=== PATIENT | female | born 1980 | race Caucasian/White ===

== ENCOUNTER 2019-05-13 11:25 | Emergency (ER) | payer MEDICAID, SELFPAY ==
--- NOTE | ~2019-05-13 | CT_ITS ---
EXAMINATION: CT brain wo con, CT cervical spine wo con EXAM DATE: 05/13/2019 12:28 (accession [id number]), 05/13/2019 12:27 (accession [id number]) INDICATION: Fall, head injury. Possible seizure. TECHNIQUE: Spiral CT of the head was performed without contrast. Axial, coronal and sagittal images were reviewed. Spiral CT of the cervical spine was performed without contrast. Axial images were rev iewed. Coronal and sagittal reformatted images were also reviewed. The dose-length product (DLP) fo r this examination was 605.33 (accession [id number]), 520.49 (accession [id number]) mGy-cm. The exposure was tailored according to patient size, and iterative reconstruction (ASIR) was used as additional dose reduction technique. There is no prior study for comparison. FINDINGS: HEAD CT: There is no acute intraparenchymal hemorrhage. No evidence of intraparenchymal brain mass l esion. No evidence of acute infarction. There is no mass effect or midline shift. There is no obstru ctive hydrocephalus suspected. There are no extra-axial collections. There are no acute calvarial f ractures. The orbits are unremarkable. Soft tissue is unremarkable. The visualized sinuses and mas toid air cells are well aerated. CERVICAL CT: There is no evidence of acute cervical fracture. The odontoid process is intact. Pre-d ens space is normal. Prevertebral soft tissue is normal. There are no soft tissue abnormalities tyler ntified. There is no disc space widening or traumatic vertebral body subluxation suspected. Mild to moderate cervical spondylosis and C5-6 disc disease. A detailed level by level evaluation of eladia kyle can be added as addendum if requested. IMPRESSION: 1. No acute intracranial or cervical findings. Reviewed, dictated and finalized at location A. IMPRESSION: 1. No acute intracranial or cervical findings.
[2019-05-13 11:43] VITALS: BP 136/52; PULSE 64; RESP 16; TEMP 36.9; O2SAT 99
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
--- NOTE | 2019-05-13 12:01 | ECG_ITS ---
Measurements Intervals [place] Rate: 70 P: 37 WI: 140 QRS: 1 QRSD: 113 T: 2 QT: 416 QTc: 451 Interpretive Statements SINUS RHYTHM WITH SINUS ARRHYTHMIA BORDERLINE T WAVE ABNORMALITY- INFERIOR LEADS BORDERLINE ECG Electronically Signed On 05-13-2019 13:31:36 CDT by Jostin Stoddard D.O.
[2019-05-13] MEDS: LORAZEPAM 1 MG TABLET PO (12:47)
--- NOTE | 2019-05-13 12:58 | PC.NURSE ---
Per verbal order readback give 1mg of PO ativan. IV ativan was wasted with second RN witness in the pyxis.
[2019-05-13 13:25] LABS: Glucose Point of Care 93 (65-105)
[2019-05-13 13:27] LABS: Basophils Percent Auto 0.2 % (0.2-1.2); Eosinophils Percent Auto 0.2 % (0-4.4); Hematocrit 40.4 % (37.0-47.0); Immature Granulocyte Absolute 0.02 K/mm3 (0.00-0.031); Immature Granulocyte Percent A 0.2 % (0-0.5); Lymphocytes Absolute Auto 1.16 K/mm3 (0.9-3.2); Lymphocytes Percent Auto 12.3 % (18.3-44.2); Mean Corpuscular HGB Conc 32.2 g/dl (32-36); Mean Corpuscular Volume 86.9 fl (80-100); Mean Platelet Volume 10.1 fl (7.4-10.4); Monocytes Absolute Auto 0.4 K/mm3 (0.1-0.6); Monocytes Percent Auto 4.1 % (2.6-8.5); Neutrophils Absolute Auto 7.8 K/mm3 (1.3-6.7); Platelet Count Result 260 k/mm3 (150-375); Red Blood Count 4.65 M/mm3 (4.2-5.4); White Blood Count 9.4 K/mm3 (4.5-10.0)
[2019-05-13 13:37] LABS: Ethanol < 10 mg/dL (<10)
[2019-05-13 14:40] LABS: Thyroid Stimulating Hormone Reflex 0.776 uIU/mL (0.465-4.68)
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
== END 2019-05-13 15:24 | disposition home or self-care (01) ==
PROVIDERS: Emergency Provider Emergency Medicine; PCP Emergency Medicine
DX: F41.9 Anxiety disorder, unspecified (principal); Z85.41 Personal history of malignant neoplasm of cervix uteri; F43.10 Post-traumatic stress disorder, unspecified; R94.31 Abnormal electrocardiogram [ECG] [EKG]
CPT/HCPCS: 36415; 70450; 72125; 80307; 81025; 82948; 84443; 85025; 93005; 99284; A9270

== ENCOUNTER 2019-09-21 00:45 | Emergency (ER) | payer OTHER, SELFPAY | END 2019-09-21 00:46 | disposition left against medical advice (07) | LOC: ANHED 01:12 | PROVIDERS: PCP Emergency Medicine | DX: Z53.21 Procedure and treatment not carried out due to patient leaving prior to being seen by health care provider (principal) | CPT/HCPCS: 99199 ==

== ENCOUNTER 2021-04-10 14:00 | Emergency (ER) | payer OTHER, SELFPAY ==
[2021-04-10 14:12] VITALS: BP 152/87; PULSE 109; RESP 18; TEMP 36.4; O2SAT 98
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
[2021-04-10] MEDS: TETANUS,DIPHTHERIA,AC PERTUSSIS ADULT (0.5 ML) BOOSTRIX IM (14:35)
[2021-04-10 14:42] LABS: Glucose Point of Care 108 mg/dl (65-105)
== END 2021-04-10 14:37 | disposition home or self-care (01) ==
PROVIDERS: Emergency Provider Nurse Practitioner; PCP Family Medicine
DX: L03.115 Cellulitis of right lower limb (principal); S71.101A Unspecified open wound, right thigh, initial encounter; X58.XXXA Exposure to other specified factors, initial encounter; Z85.41 Personal history of malignant neoplasm of cervix uteri; Z23 Encounter for immunization; F43.10 Post-traumatic stress disorder, unspecified
CPT/HCPCS: 82948; 90471; 90715; 99213; G0463

== ENCOUNTER 2021-04-20 04:10 | Observation (INO) | payer OTHER, SELFPAY ==
[2021-04-20] VITALS (54 sets, daily range): BP systolic 100–141; BP diastolic 55–88; PULSE 51–89; RESP 13–30; TEMP 36.4–37.1; O2SAT 93–100; BMI 42.1
--- NOTE | ~2021-04-20 | CT_ITS ---
EXAMINATION: CT brain wo con DATE: 04/20/2021 08:23 INDICATION: Altered mental status. Confusion. Hallucinations. TECHNIQUE: Computed tomography (CT) of the head was performed without intravenous contrast. The mA wa s adjusted according to patient size. Iterative reconstruction technique was employed. The dose-lengt h product was 605.33 mGy-cm. COMPARISON: Head CT 05/13/2019 FINDINGS: There is no intracranial hemorrhage, acute infarction, or abnormal intracranial mass lesion . The ventricles are normal in size. The orbits are normal. There is mild mucosal thickening in the e thmoid sinuses. The mastoid air cells are normal. IMPRESSION: 1. Normal brain. Reviewed, dictated and finalized at location A. ETBALL REFEREE IMPRESSION: 1. Normal brain.
--- NOTE | 2021-04-20 04:16 | ECG_ITS ---
Measurements Intervals [place] Rate: 60 P: 35 AR: 155 QRS: 12 QRSD: 110 T: -14 QT: 468 QTc: 469 Interpretive Statements SINUS RHYTHM ST-T WAVE ABNORMALITY IN ANT/INF LEADS- CONSIDER ISCHEMIA ABNORMAL ECG Electronically Signed On 04-20-2021 7:04:02 [facility]LL [employer] by Jostin Stoddard D.O.
--- NOTE | 2021-04-20 04:20 | ED.OVERDOSE ---
HPI - Overdose General Chief Complaint: Overdose <Emerson Scott MD - Last Filed: 04/20/21 07:09> Stated Complaint: POSSIBLE OD, LETHARGIC <Emerson Scott MD - Last Filed: 04/20/21 07:09> Time Seen by Provider: 04/20/21 04:16 <Emerson Scott MD - Last Filed: 04/20/21 07:09> Source: patient, EMS, RN notes reviewed and old records reviewed <Emerson Scott MD - Last Filed: 04/20/21 07:09> History of Present Illness HPI Narrative: Patient brought in for possible overdose patient was found by her significant other on the ground EMS was called they arrived patient was minimally responsive patient did verbalize that she took her Xanax anywhere from 15 to 30 tablets patient has a history of opiate abuse EMS attempted Narcan no significant change in mental status and was transported the patient to the ER. Patient reports she is not trying to harm herself but was trying to kill the demons in her body. She also reported taking a significant amount of fentanyl this evening she injected it all over her body . EMS brought in alprazolam prescription with 1 mg tabs twice daily quantity 60 tabs that was filled on the April 04, 2021. the bottle is empty <Emerson Scott MD - Last Filed: 04/20/21 07:09> Related Data Home Medications: Home Medications Medication Instructions Recorded Confirmed Seroquel 04/10/21 alprazolam 1 mg PO BID 04/10/21 04/10/21 dextroamphetamine-amphetamine 30 mg PO BID 04/10/21 04/10/21 methadone 04/10/21 <Emerson Scott MD - Last Filed: 04/20/21 07:09> Allergies/Adverse Reactions: Allergies Allergy/AdvReac Type Severity Reaction Status Date / Time Sulfa (Sulfonamide Allergy Intermediate Verified 02/14/19 16:11 Antibiotics) <Emerson Scott MD - Last Filed: 04/20/21 07:09> Review of Systems Review of Systems: ROS unobtainable: Yes unobtainable due to medical condition <Emerson Scott MD - Last Filed: 04/20/21 07:09> PMFSH Past Medical History Medical History: Medical History Cervical cancer History of hepatitis PTSD (post-traumatic stress disorder) <Emerson Scott MD - Last Filed: 04/20/21 07:09> Surgical History Surgical History: Surgical History History of gynecologic surgery Cervical cancer cells removed <Emerson Scott MD - Last Filed: 04/20/21 07:09> Family History Family History: Family History Mother Depression Family history of migraine headaches Family history of diabetes mellitus in first degree relative Family history of attention deficit hyperactivity disorder (ADHD) Grandparent Depression Asthma Diabetes mellitus <Emerson Scott MD - Last Filed: 04/20/21 07:09> Social History Social History: Social History Smoking status: Current every day smoker Tobacco type: cigarettes Second hand tobacco smoke exposure: No Alcohol intake: never Substance use type: IV drugs Gender identity (if verbalized by the patient): Female Spiritual care concerns: No <Emerson Scott MD - Last Filed: 04/20/21 07:09> Exam Narrative: GENERAL: Well-appearing, well-nourished, agitated HEAD: Normocephalic, atraumatic. EYES: PERRLA and EOMI. ENT: Nares clear, no rhinorrhea or epistaxis. Mucous membranes moist. NECK: Supple. No masses. No JVD CHEST: Clear to auscultation. No respiratory distress. No wheezes rales or rhonchi HEART: Regular rate and rhythm. No murmur heard. Normal peripheral pulses. ABDOMEN: Soft, nontender, nondistended, normal active bowel sounds. EXTREMITIES: Normal range of motion. No edema. SKIN: Warm, dry, no rash. NEURO: No focal deficits. Alert responding to questions appropriately but very distracted PSYCH: Normal mood and affe
--- NOTE | 2021-04-20 04:30 | PC.NURSE ---
spoke with poison control: based on ingestion of 12-30 xanax pt is most likely toxic. peak is 2 hours. pt took meds at approx 0300. provide supportive care and obtain drug screen based on pt admitting to fentanyl use today. poison control will call back in 2 hours for update.
--- NOTE | 2021-04-20 04:35 | PC.NURSE ---
Per EDP Dr Scott gave VORB for bilat soft wrist and ankle restraints due to high risk of self harm, AMS, thrashing, unable to assess, unable to redirect. Order placed.
[2021-04-20] MEDS: HALOPERIDOL LACTATE 5 MG/ML VIAL IM (04:58)
--- NOTE | 2021-04-20 04:59 | PC.NURSE ---
Per EDP Dr Tyler de leon to place IV in foot due to unsuccessful IV attempt in upper ext and prominent scar tissue on limbs due to drug use. EDP declined IO at this time and IV placement in RIGHT foot is successful.
[2021-04-20 05:04] LABS: Basophils Percent Auto 0.4 % (0.2-1.2); Eosinophils Absolute Auto 0.1 K/mm3 (0-0.3); Hematocrit 42.6 % (37.0-47.0); Hemoglobin 14.3 g/dL (12.0-15.0); Immature Granulocyte Absolute 0.03 K/mm3 (0.00-0.031); Immature Granulocyte Percent A 0.3 % (0-0.5); Lymphocytes Absolute Auto 3.22 K/mm3 (0.9-3.2); Lymphocytes Percent Auto 32.2 % (18.3-44.2); Mean Corpuscular HGB Conc 33.6 g/dl (32-36); Mean Corpuscular Hemoglobin 28.8 pg (26-34); Mean Corpuscular Volume 85.7 fl (80-100); Mean Platelet Volume 10.3 fl (7.4-10.4); Monocytes Absolute Auto 0.7 K/mm3 (0.1-0.6); Monocytes Percent Auto 6.5 % (2.6-8.5); Neutrophils Percent Auto 59.6 % (45.5-73.1); Platelet Count Result 208 k/mm3 (150-375); Red Blood Count 4.97 M/mm3 (4.2-5.4); Red Cell Distribution Width 14.9 % (11.5-14.5)
[2021-04-20 05:08] LABS: Add Urine Microscopic? YES; Appearance Urine Clear (Clear); Bilirubin Urine Negative (Negative); Blood Urine Negative (Negative); Color Urine Yellow (Yellow); Glucose Urine UA Negative (Negative); Ketones Urine Trace mg/dL (Negative); Leukocyte Esterase Ur Negative LEU/UL (Negative); Mucus Urine Rare /lpf; Nitrate Urine Negative (Negative); Protein Urine Negative (Negative); RBC Urine 0-2 /hpf (0-2); Specific Grav Ur 1.006 (1.001-1.035); Squamous Epithelial Cell Urine Rare /hpf (Few); Urobilinogen Urine Negative mg/dL (<2.0); WBC Urine 0-3 /hpf
[2021-04-20 05:18] LABS: Alanine Aminotransferase 44 U/L (4-35); Alkaline Phosphatase 76 U/L (38-126); Anion Gap 10 mmol/L (8-16); Aspartate Amino Transferase 63 U/L (14-36); Blood Urea Nitrogen 7 mg/dL (7-17); Carbon Dioxide 23 mmol/L (22-30); Chloride 105 mmol/L (98-107); Estimated CRCL calculation 91 ml/min; Estimated Glomerular Filt Rate > 60; Glucose 82 mg/dL (65-110); Potassium 4.2 mmol/L (3.4-5.0); Sodium 138 mmol/L (137-145)
[2021-04-20 05:20] LABS: Acetaminophen < 10 ug/mL (10-30); Ethanol < 10 mg/dL (<10); Salicylate < 1.0 mg/dL (2-20)
[2021-04-20 05:22] LABS: Amphetamine Screen Urine Negative (Negative); Barbiturate Screen Urine Negative (Negative); Benzodiazepines Screen Urine Positive (Negative); Cannabinoid Screen Urine Negative (Negative); Cocaine Screen Urine Negative (Negative); Methadone Screen Urine Positive (Negative); Opiate Screen Urine Negative (Negative); Phencyclidine Screen Urine Negative (Negative)
[2021-04-20 05:26] LABS: Glucose Point of Care 96 mg/dl (65-105)
--- NOTE | 2021-04-20 06:17 | PC.NURSE ---
this RN talked to [place] poison control Joan and they just wanted information about Lab work. Information was provided at this time. No other questions. Joan stated they would call back to get more information if they need it.
--- NOTE | 2021-04-20 07:16 | PC.NURSE ---
Assumed care of pt. at this time. Report from CHAO Walden and CHAO Jennings
--- NOTE | 2021-04-20 14:44 | ADMGEN ---
This patient, Samina Elmore, was admitted to IMU Room 210-01 at 1410. Patient/family oriented to hospital policies and general routines including ID bracelet, bed and alarms, visiting hours, pain management, procedures, bathroom and other care routines, personal items, smoking policy, room service/diet, and visiting hours. Information on how to activate the Rapid Response Team has been discussed. Patient/Family are encouraged to report perceived risks to care and to ask questions if they do not understand what they are told or what they should do.
[2021-04-20] MEDS: SODIUM CHLORIDE 0.9% IV 1,000 ML 125 ML IV CONT (16:13)
--- NOTE | 2021-04-20 16:56 | PM.IMHP ---
H&P: HPI History of Present Illness Date/Time: Patient was placed observation status for expected length of stay less than 23 hours for management, will plan to re-evaluate tomorrow for improvement. 04/20/21 16:56 Chief Complaint: Altered mental status Narrative: Ms. Elmore is a 40-year-old female who presented to emergency room via EMS with altered mental status. I am unable to get any history from the patient, secondary to his sedated state. Patient's fiancee is at bedside and is able to assist with some past history. The patient's fiancee states the patient and himself were added heroin and fentanyl use was in the past but had been on methadone and they have been clean for approximately 6 months. Patient's fiancee states that he was sleeping next to her and he woke up and she was acting extremely defiant and he thought she was having a seizure. He states he is unsure if she was having any jerking motions while in bed. Patient's fiancee states the patient does have a history of seizure disorder and was on Dilantin the past but quit taking this medication secondary to not feeling right. Patient's fiancee states that she was supposed to be referred to a new neurologist when she sees her psychiatrist on 05/02/2021. As I dissected this point time I am able to get any type of history from the patient. Patient does have a known history of heroin and fentanyl use. Patient has recently placed on methadone and goes to methadone clinic daily for treatment of methadone. Pt evaluation and management patient was quite combative and screaming and per emergency room records patient had stated she may have taken 15-30 Xanax and she had stated that she did this not to harm herself but she was trying to kill the demons in her body. Patient also told the Emergency that she did take a significant amount of fat and injected all over her body. Patient's fiancee states that he was unaware that this actually occurred. Patient's fiancee states that there are multiple empty medication bottles at home, but they were utilizing these for a ?art project?. Review of Systems Review of Systems: I am unable to obtain review of systems secondary to the patient's clinical condition. [facility] Past Medical History Medical History Cervical cancer History of hepatitis PTSD (post-traumatic stress disorder) Surgical History Surgical History History of gynecologic surgery Cervical cancer cells removed Family History Family History Mother Depression Family history of migraine headaches Family history of diabetes mellitus in first degree relative Family history of attention deficit hyperactivity disorder (ADHD) Grandparent Depression Asthma Diabetes mellitus Social History Social History Smoking status: Current every day smoker Tobacco type: cigarettes Second hand tobacco smoke exposure: No Alcohol intake: never Substance use type: IV drugs Gender identity (if verbalized by the patient): Female Spiritual care concerns: No Meds Home Medications and Allergies Home Medications Medication Instructions Recorded Confirmed Type Seroquel 04/10/21 History alprazolam 1 mg PO BID 04/10/21 04/10/21 History cephalexin 500 mg PO Q6H 10 Days #40 cap 04/10/21 Rx dextroamphetamine-amphetamine 30 mg PO BID 04/10/21 04/10/21 History methadone 04/10/21 History Allergies Allergy/AdvReac Type Severity Reaction Status Date / Time Sulfa (Sulfonamide Allergy Intermediate Verified 02/14/19 16:11 Antibiotics) Vital Signs Vital Signs - 24 hr 04/20/21 04:38 04/20/21 04:43 04/20/21 04:46 Temperature 36.8 C Pulse Rate 86 80 87 Respiratory Rate 30 H 22 H 27 H Blood Pressure 141/88 H Pulse Oximetry 98 98 04/20/21 05
[2021-04-20] MEDS: SODIUM CHLORIDE 0.9% IV 1,000 ML 100 ML IV CONT (20:44)
--- NOTE | 2021-04-20 22:38 | PC.NURSE ---
While patient groggy CHAO Garcia reported that patient said she had wanted to kill herself. This charge nurse went into room to assess pt and patient woke easily, is alert and oriented, and denies suicidal ideation. Patient states she hadn't wanted to hurt herself or commit suicide; while in ER patient had made comment about killing demons in her body. Patient further agrees with statement from ER that she wanted to get rid of the demons. Encouraged patient to share thoughts of harming self if they occur so we can work with her to keep her safe. Patient did not admit to taking anything prior to admit and taking anything earlier tonight to cause grogginess. Explained to patient she can not take anything that is not ordered by physician or administered by the nurse. Pt states she journals and is worried about seizure from not having xanax. This nurse stated she could not have xanax due to large dose causing admit which pt did not deny. Spoke with Jackeline RUANO and decision was made to keep pt in IMU at this time due to continued denial of suicidal ideation and increased alertness. Nicotine patch ordered for withdrawal while in hospital.
--- NOTE | 2021-04-20 22:42 | PC.NURSE ---
04/20/21 approximately 1900 patient was a/o x3 stated she wanted to leave to go smoke and return. I informed her of the hospital policy. She had a visitor at the time who I informed of the visiting hours. He left. I returned to the room at 1930 to find 3 cigarettes and a sewer and inspector on her bedside table. I removed them and put them in the [facility] room drawer with her label attached. I returned to the room to find the patient very lethargic and incoherent. After several minutes I was able to get a clear response to my questions. She stated her full name and that she was in the hospital. She stated I was trying to kill myself, but not now . I proceeded to ask questions of which she was dozing off in between each question. I asked her if she wanted to harm or kill herself now? She said, no. I asked her did she take anything, because she was very lethargic with mumbled speech. She did not respond. I repeated the question, did you take anything, any medication? Did your friend give you any medication? She stated, did I take anything? Maybe I did, maybe I didn't. I asked if she could be more specific. Did you take anything that's making her drowsy. She said, no. I spoke with the charge nurse regarding my findings. I contacted the CONDUCTOR/BRAKEMAN with update. The charge nurse went in to assess the patient. She seemed more alert and responsive to the questions. Patient stated she did not want to hurt or kill herself.
[2021-04-20] MEDS: NICOTINE (*PBKC) 21 MG PATCH 1 PATCH TRANSDERM (23:11)
[2021-04-21] VITALS (7 sets, daily range): BP systolic 96–128; BP diastolic 52–66; PULSE 53–94; RESP 13–26; TEMP 35.9–36.9; O2SAT 96–100
[2021-04-21] MEDS: SODIUM CHLORIDE 0.9% IV 1,000 ML 100 ML IV CONT (02:14)
[2021-04-21 05:37] LABS: Alanine Aminotransferase 39 U/L (4-35); Albumin Level 3.2 g/dL (3.5-5.1); Alkaline Phosphatase 47 U/L (38-126); Anion Gap 5 mmol/L (8-16); Aspartate Amino Transferase 55 U/L (14-36); Bilirubin,Total 0.6 mg/dL (0.2-1.3); Blood Urea Nitrogen 16 mg/dL (7-17); Calcium 8.2 mg/dL (8.4-10.2); Carbon Dioxide 19 mmol/L (22-30); Chloride 113 mmol/L (98-107); Estimated CRCL calculation 45 ml/min; Estimated Glomerular Filt Rate 36; Glucose 91 mg/dL (65-110); Potassium 4.1 mmol/L (3.4-5.0); Sodium 137 mmol/L (137-145)
[2021-04-21] MEDS: ENOXAPARIN 40 MG/0.4 ML SYRINGE SUB-Q (10:08)
--- NOTE | 2021-04-21 10:49 | PC.NURSE ---
Spoke with poison control center in [place]. Based on conversation with CHAO Epps and patient's neurological, vital signs, cardiology status, patient cleared from poison control center. Dr. Whiting aware of poison control status.
--- NOTE | 2021-04-21 14:30 | PC.NURSE ---
Patient states suicidal ideations, ordered for crisis to evaluate. Crisis decided to involuntarily admit patient to psych. Patient moved to ICU-4 at 1428, sitter in room, all belongings removed from patient, patient aware of suicide precautions.
[2021-04-21 14:53] LABS: Basophils Percent Auto 0.3 % (0.2-1.2); Eosinophils Absolute Auto 0.1 K/mm3 (0-0.3); Hematocrit 41.5 % (37.0-47.0); Hemoglobin 13.5 g/dL (12.0-15.0); Immature Granulocyte Absolute 0.01 K/mm3 (0.00-0.031); Immature Granulocyte Percent A 0.1 % (0-0.5); Lymphocytes Absolute Auto 2.35 K/mm3 (0.9-3.2); Lymphocytes Percent Auto 34.7 % (18.3-44.2); Mean Corpuscular HGB Conc 32.5 g/dl (32-36); Mean Corpuscular Hemoglobin 28.5 pg (26-34); Mean Corpuscular Volume 87.7 fl (80-100); Mean Platelet Volume 10.1 fl (7.4-10.4); Monocytes Absolute Auto 0.4 K/mm3 (0.1-0.6); Monocytes Percent Auto 5.6 % (2.6-8.5); Neutrophils Absolute Auto 3.9 K/mm3 (1.3-6.7); Neutrophils Percent Auto 58.3 % (45.5-73.1); Platelet Count Result 181 k/mm3 (150-375); Red Blood Count 4.73 M/mm3 (4.2-5.4); Red Cell Distribution Width 15.5 % (11.5-14.5); White Blood Count 6.8 K/mm3 (4.5-10.0)
--- NOTE | 2021-04-21 16:41 | PM.IMPN ---
Progress Note: A&P Assessment and Plan (1) Altered mental status: Code(s): R41.82 - Altered mental status, unspecified Status: Acute Assessment and Plan: Likely multifactorial in the setting of psych disorder, polysubstance abuse and recent suicidal gesture. Patient received a dose of haloperidol in the emergency room and she had significant improvement. At the time of my evaluation on April 21, 2021, the patient was medically cleared for a crisis evaluation. Later during the day, she became somnolent and had to be transferred to ICU for one-to-one observation out of concern for ongoing substance exposure. She had receive a visit from her boyfriend earlier in the day and later became less responsive. A repeat urine toxicology screen was ordered; unfortunately a urine sample was not obtained. Patient was re-evaluated after arrival to the ICU. Patient is resting quietly at this time but, will arouse to verbal stimulation. Urine toxicology screen positive for benzodiazepine. Patient was hydrated and kept on gambling monitor overnight. Due to concern for safety, patient was put on a 72-hourf psychiatric hold. She will be transferred to inpatient psych unit for further evaluation and management. (2) Drug abuse: Code(s): F19.10 - Other psychoactive substance abuse, uncomplicated Status: Acute Assessment and Plan: Urine toxicology screen positive for methadone and benzodiazepine. Patient has experienced polysubstance abuse in the past. Continue tele monitoring, IV hydration and serial daily chemistries. Subjective Date/time seen: 04/21/21 09:47 Narrative: 40-year old lady with anxiety, depression, bipolar disorder, substance use disorder admitted after suicidal gesture;; she took 15-30 tablets of xanax. S: Patient was seen and examined at the bedside. She is anxious depressed and tearful at the time of my encounter. Initially she reported plans for the future, and a desire to be transferred to inpatient psych unit were she would make some improvement. She is awake, alert oriented and coherent. She was cleared for crisis evaluation. Later during the day patient expresses a wish to sign out AMA. She was evaluated by crisis and later found to be somnolent. In viewing of current situation, patient was put on an involuntary hold for suicidal watch and transfer to the intensive care unit for one-to-one observation. Review of Systems Review of Systems: All systems reviewed & are unremarkable except as noted in HPI and below Constitutional: Constitutional: Reports as per HPI and Reports no additional constitutional complaints Eyes: Eyes: Reports as per HPI and Reports no additional eye complaints ENT: Reports system reviewed and no additional complaints, except as documented and Reports as per HPI Cardiovascular: Cardiovascular: Reports as per HPI and Reports no additional cardiovascular complaints Respiratory: Respiratory: Reports as per HPI and Reports no additional respiratory complaints Gastrointestinal: Gastrointestinal: Reports as per HPI and Reports no additional gastrointestinal complaints Genitourinary: Genitourinary: Reports no additional female genitourinary complaints and Reports as per HPI Musculoskeletal: Musculoskeletal: Reports no additional musculoskeletal complaints and Reports as per HPI Integumentary/Breasts: Skin/Breast: Reports system reviewed and no additional complaints, except as docu and Reports as per HPI Neurologic: Reports system reviewed and no additional complaints, except as documented and Reports as per HPI Psychiatric: Psychiatric: Reports as per HPI, Reports anxiety, Reports behavioral changes, Reports depression and Reports suicidal ideation Exam Narrative: Constitutional: Patient is well-nourished in no acute distress. Patient is resting quietly but will arouse to verbal stimulation. Neck: No carotid bruits noted no JVD noted Lungs: Lung sounds are clear to a
[2021-04-21] MEDS: NICOTINE (*PBKC) 21 MG PATCH 1 PATCH TRANSDERM (21:38)
[2021-04-22] VITALS: BP 127/64; PULSE 74; RESP 22; O2SAT 98
[2021-04-22 04:00] VITALS: BP 128/68; PULSE 81; RESP 24; TEMP 36.4; O2SAT 98
[2021-04-22 08:00] VITALS: BP 130/57; PULSE 62; RESP 14; TEMP 37.2; O2SAT 100
[2021-04-22] MEDS: ENOXAPARIN 40 MG/0.4 ML SYRINGE SUB-Q (08:19)
--- NOTE | 2021-04-22 10:30 | PM.IMPN ---
Progress Note: A&P Assessment and Plan (1) Altered mental status: Code(s): R41.82 - Altered mental status, unspecified Status: Acute Assessment and Plan: Likely multifactorial in the setting of psych disorder, polysubstance abuse and recent suicidal gesture. Currently patient is awake alert and oriented. She is hemodynamically stable. She denies any active complaint. She is moving all 4 extremities. She is observed walking in her room without any issues. There were no telemetry events overnight. She remains on one-to-one observation out of safety concerns. She is medically cleared for crisis evaluation. Urine toxicology screen positive for benzodiazepine and methadone. 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 Due to concern for safety, patient was put on a 72-hour psychiatric hold. She will be transferred to inpatient psych unit for further evaluation and management. (2) Drug abuse: Code(s): F19.10 - Other psychoactive substance abuse, uncomplicated Status: Acute Assessment and Plan: Urine toxicology screen positive for methadone and benzodiazepine. Patient has experienced polysubstance abuse in the past. Continue tele monitoring, IV hydration and serial daily chemistries. Care coordination and crisis evaluation for inpatient psych unit placement. Subjective Date/time seen: 04/22/21 10:00 S: Patient was seen examined at the bedside. She is awake alert oriented. She appears to be more calm. She is coherent. She was asking to attend a televised mass and receive a Bible. Review of Systems Review of Systems: All systems reviewed & are unremarkable except as noted in HPI and below Constitutional: Constitutional: Reports as per HPI and Reports no additional constitutional complaints Eyes: Eyes: Reports as per HPI and Reports no additional eye complaints ENT: Reports system reviewed and no additional complaints, except as documented and Reports as per HPI Cardiovascular: Cardiovascular: Reports as per HPI and Reports no additional cardiovascular complaints Respiratory: Respiratory: Reports as per HPI and Reports no additional respiratory complaints Gastrointestinal: Gastrointestinal: Reports as per HPI and Reports no additional gastrointestinal complaints Genitourinary: Genitourinary: Reports no additional female genitourinary complaints and Reports as per HPI Musculoskeletal: Musculoskeletal: Reports no additional musculoskeletal complaints and Reports as per HPI Integumentary/Breasts: Skin/Breast: Reports system reviewed and no additional complaints, except as docu and Reports as per HPI Neurologic: Reports system reviewed and no additional complaints, except as documented, Reports as per HPI and Reports behavioral changes Psychiatric: Psychiatric: Reports as per HPI, Reports anxiety, Reports behavioral changes, Reports depression and Reports suicidal ideation Exam Narrative: Constitutional: Patient is well-nourished in no acute distress. Patient is resting quietly but will arouse to verbal stimulation. Neck: No carotid bruits noted no JVD noted Lungs: Lung sounds are clear to auscultation bilaterally. No accessory muscle use. No rhonchi, rales, or wheezes noted. Cardiovascular: Apical pulse is regular rate and rhythm. S1-S2 noted, no S3 or S4 noted. No gallops, murmurs, or rubs noted. Abdomen: Soft, round, and nontender. No palpable masses. Extremities: No edema. Nontender. Skin: No rashes or lesions. Warm and dry. Skin is intact. Neurological: No focal neurological deficits. Cranial nerves II-XII grossly intact. Objective Data Vital Signs Vital Signs: Vital Signs - 24 hr 04/21/21 16:00 04/21/21 20:00 04/22/21 00:00 Temperature 97.8 F 97.4 F L Pulse Rate 86 94 74 Respiratory Rate 13 26 H 22 H Blood Pressure 128/66 128/66 127/64 Pulse Oximetry 100 98 98 04/22/21 04:00 04/22/21 08:00 Temperature 97.6 F 98.9 F Pulse Rate 81 62 R
[2021-04-22 14:14] LABS: Hematocrit 38.8 % (37.0-47.0); Hemoglobin 12.8 g/dL (12.0-15.0); Mean Corpuscular Hemoglobin 28.7 pg (26-34); Mean Platelet Volume 10.7 fl (7.4-10.4); Platelet Count Result 160 k/mm3 (150-375); Red Blood Count 4.46 M/mm3 (4.2-5.4); Red Cell Distribution Width 14.8 % (11.5-14.5); White Blood Count 6.1 K/mm3 (4.5-10.0)
[2021-04-22 14:27] LABS: Anion Gap 2 mmol/L (8-16); Blood Urea Nitrogen 9 mg/dL (7-17); Carbon Dioxide 31 mmol/L (22-30); Chloride 105 mmol/L (98-107); EDCOVIDSCREEN Negative (Negative); Estimated CRCL calculation 81 ml/min; Estimated Glomerular Filt Rate > 60; Glucose 87 mg/dL (65-110); Potassium 4.2 mmol/L (3.4-5.0); Sodium 138 mmol/L (137-145)
[2021-04-22 14:50] LABS: SPREG INTERNAL CONTROL Positive; Serum Qual hCG Negative
[2021-04-22 15:02] LABS: Alanine Aminotransferase 42 U/L (4-35); Aspartate Amino Transferase 62 U/L (14-36)
[2021-04-22 16:00] VITALS: BP 139/73; PULSE 63; RESP 14; TEMP 36.7; O2SAT 100
[2021-04-22] MEDS: NICOTINE (*PBKC) 21 MG PATCH 1 PATCH TRANSDERM (20:40)
[2021-04-22 23:47] VITALS: BP 130/77; PULSE 60; RESP 18; TEMP 35.9; O2SAT 100
--- NOTE | 2021-04-23 07:37 | ECG_ITS ---
Measurements Intervals [place] Rate: 63 P: 48 [place]: 154 QRS: 7 QRSD: 109 T: 1 QT: 445 QTc: 458 Interpretive Statements SINUS RHYTHM BORDERLINE T WAVE ABNORMALITY- INFERIOR LEADS BORDERLINE ECG Electronically Signed On 04-23-2021 12:15:27 PERSONALIZATION SPECIALIST by Jostin Stoddard D.O.
[2021-04-23 07:46] VITALS: BP 148/70; PULSE 67; RESP 16; TEMP 36.4; O2SAT 99
[2021-04-23] MEDS: ENOXAPARIN 40 MG/0.4 ML SYRINGE SUB-Q (08:30)
[2021-04-23 08:34] LABS: Hematocrit 39.9 % (37.0-47.0); Hemoglobin 13.2 g/dL (12.0-15.0); Mean Corpuscular HGB Conc 33.1 g/dl (32-36); Mean Corpuscular Hemoglobin 28.6 pg (26-34); Mean Corpuscular Volume 86.4 fl (80-100); Mean Platelet Volume 10.2 fl (7.4-10.4); Platelet Count Result 188 k/mm3 (150-375); Red Blood Count 4.62 M/mm3 (4.2-5.4); Red Cell Distribution Width 14.7 % (11.5-14.5); White Blood Count 5.9 K/mm3 (4.5-10.0)
[2021-04-23 09:02] LABS: Anion Gap 7 mmol/L (8-16); Blood Urea Nitrogen 5 mg/dL (7-17); Calcium 9.2 mg/dL (8.4-10.2); Carbon Dioxide 29 mmol/L (22-30); Chloride 104 mmol/L (98-107); Estimated CRCL calculation 90 ml/min; Estimated Glomerular Filt Rate > 60; Glucose 100 mg/dL (65-110); Potassium 3.9 mmol/L (3.4-5.0); Sodium 140 mmol/L (137-145)
[2021-04-23 09:33] LABS: Hepatitis B Surface Antigen Negative (Negative)
[2021-04-23 09:47] LABS: HAV RESULT Negative (Negative); Hepatitis B Core IgM Result Negative (Negative)
[2021-04-23 09:53] LABS: Alanine Aminotransferase 44 U/L (4-35); Aspartate Amino Transferase 70 U/L (14-36)
[2021-04-23 09:56] LABS: Hepatitis C Virus Antibody Reactive (Negative)
[2021-04-23 11:22] LABS: SARS-CoV-2 RNA PCR Negative
--- NOTE | 2021-04-23 11:45 | WPDPN ---
Subjective Date/time seen: 04/23/21 11:45 Interval history: Patient is medically cleared for transfer to a psychiatric facility Objective Data Vital Signs Vital Signs: Vital Signs - 24 hr 04/22/21 16:00 04/22/21 23:47 04/23/21 07:46 Temperature 98.0 F 96.7 F L 97.6 F Pulse Rate 63 60 67 Respiratory Rate 14 18 16 Blood Pressure 139/73 130/77 148/70 H Pulse Oximetry 100 100 99 Intake/Output Intake/Output: Intake & Output 04/20/21 04/21/21 04/22/21 04/23/21 23:59 23:59 23:59 23:59 Intake Total 740 2160 2640 240 Output Total 1400 Balance 531 309 0705 240 Meds/Results Medications: Active Medications Generic Name Dose Route Start Last Admin Trade Name Freq PRN Reason Stop Dose Admin Albuterol 2 puff 04/21/21 19:52 Albuterol Sulfate (*Sp) Aerosol 1 Puff INHALATION QID PRN Shortness Of Breath Or Wheezing Enoxaparin Sodium 40 mg 04/21/21 09:00 04/23/21 08:30 Enoxaparin 40 Mg/0.4 Ml Syringe SUB-Q 40 mg DAILY [facility] Administration Nicotine 1 patch 04/20/21 22:30 04/22/21 20:40 Nicotine (*Pbkc) 21 Mg Patch TRANSDERM 1 patch HS [facility] Administration Radiology Results: ITS Impressions Head CT 04/20/21 08:24 IMPRESSION: 1. Normal brain. Labs Labs: Laboratory Results - last 24 hr 04/22/21 04/22/21 04/22/21 14:05 14:08 14:08 WBC 6.1 RBC 4.46 Hgb 12.8 Hct 38.8 MCV 87.0 MCH 28.7 MCHC 33.0 RDW 14.8 H Plt Count 160 MPV 10.7 H Sodium 138 Potassium 4.2 Chloride 105 Carbon Dioxide 31 H Anion Gap 2 L BUN 9 D Creatinine 0.90 Estim Creat Clear Calc 81 Estimated GFR > 60 Glucose 87 Calcium 9.0 AST 62 H ALT 42 H Serum HCG, Qual Negative Hepatitis A IgM Ab Hep Bs Antigen Hep B Core IgM Ab Hepatitis C Ab Screen SARS-CoV-2 RNA (RT-PCR) SARS-CoV-2 IgG/IgM Ag?Rapid 04/22/21 04/23/21 04/23/21 14:08 08:25 08:25 WBC 5.9 RBC 4.62 Hgb 13.2 Hct 39.9 MCV 86.4 MCH 28.6 MCHC 33.1 RDW 14.7 H Plt Count 188 MPV 10.2 Sodium 140 Potassium 3.9 Chloride 104 Carbon Dioxide 29 Anion Gap 7 L BUN 5 L Creatinine 0.80 Estim Creat Clear Calc 90 Estimated GFR > 60 Glucose 100 Calcium 9.2 AST ALT Serum HCG, Qual Hepatitis A IgM Ab Hep Bs Antigen Hep B Core IgM Ab Hepatitis C Ab Screen SARS-CoV-2 RNA (RT-PCR) SARS-CoV-2 IgG/IgM Ag?Rapid Negative 04/23/21 04/23/21 04/23/21 08:25 08:25 10:38 WBC RBC Hgb Hct MCV MCH MCHC RDW Plt Count MPV Sodium Potassium Chloride Carbon Dioxide Anion Gap BUN Creatinine Estim Creat Clear Calc Estimated GFR Glucose Calcium AST 70 H ALT 44 H Serum HCG, Qual Hepatitis A IgM Ab Negative Hep Bs Antigen Negative Hep B Core IgM Ab Negative Hepatitis C Ab Screen Reactive SARS-CoV-2 RNA (RT-PCR) Negative SARS-CoV-2 IgG/IgM Ag?Rapid Quality VTE Prophylaxis VTE prophylaxis: mechanical ordered and pharmacologic ordered
--- NOTE | 2021-04-23 14:22 | PM.TDS ---
Transfer Discharge Sum: Prov Provider Date of admission: 04/20/21 12:50 Primary care physician: [employer] PHYSICIAN Admitting clinician: Roberto Calderon MD Consults: 04/21/21 Care Coordination Consult Routine Comment: crisis to eval Reason for Consult:: Other Attending physician on discharge: Andrea Sanchez Discharging clinician: Andrea Sanchez Anticipated date of transfer: 04/23/21 DS: Admitting Diagnosis Discharge Date 04/23/21 Admitting Diagnosis Altered mental status DS: Discharge Diagnosis Discharge Diagnosis (1) Overdose: Qualifiers: Encounter type: initial encounter Injury intent: undetermined intent Qualified Code(s): T50.904A - Poisoning by unspecified drugs, medicaments and biological substances, undetermined, initial encounter Code(s): T50.901A - Poisoning by unspecified drugs, medicaments and biological substances, accidental (unintentional), initial encounter Status: Acute (2) Altered mental status: Code(s): R41.82 - Altered mental status, unspecified Status: Acute (3) Drug abuse: Code(s): F19.10 - Other psychoactive substance abuse, uncomplicated Status: Acute Transfer Discharge Sum: Med Medications Active and Home Medications: Home Medications alprazolam 1 mg PO BID 04/10/21 [History Confirmed 04/21/21] albuterol sulfate 2 puff INHALATION QID PRN 04/21/21 [History Confirmed 04/21/21] Active Medications Albuterol (Albuterol Sulfate (*Sp) Aerosol 1 Puff) 2 puff INHALATION QID PRN PRN Reason: Shortness Of Breath Or Wheezing Enoxaparin Sodium (Enoxaparin 40 Mg/0.4 Ml Syringe) 40 mg SUB-Q DAILY [facility] Last Admin: 04/23/21 08:30 Dose: 40 mg Documented by: Nicotine (Nicotine (*Pbkc) 21 Mg Patch) 1 patch TRANSDERM HS [facility] Last Admin: 04/22/21 20:40 Dose: 1 patch Documented by: Transfer Discharge Sum: Hosp Hospital Course Hospital course: Samina Elmore is a 40 year old female with history of drug abuse presents to emergency room via EMS with altered mental status. Please see H&P for details. Patient has a history of heroin and fentanyl use. She was on methadone and goes to the methadone clinic daily for treatment. She stated that she took 15-30 Xanax. The notes states the patient was doing this to try to kill the demons in her body. Patient was given Haldol in the emergency room. She was started on IV fluids. She was admitted to the ICU for further care. Patient's lab work on admission was completely normal except for an AST was 63 and ALT of 44. Repeat levels were about the same. She did have 1 episode where she had a low serum bicarb and elevated creatinine 1.6 but by the following day these numbers normalized so this may have just been lab error. These labs were repeated again and remained normal. Her test was negative. CT of the brain was read as normal. Urinalysis was clear. Urine drug screen is positive for methadone and benzodiazepines. Alcohol, acetaminophen and salicylate levels were negative. COVID nasal swab was negative. Hepatitis-C antibody screen was reactive with further results pending. HIV is still pending. Patient has known hepatitis-C. EKG showed ST T wave changes in the anterior inferior leads consider ischemia. Repeat EKG now showing borderline T-wave changes. [place] that some of these EKG findings were related to demand ischemia. Patient remained on telemetry throughout her hospital course without significant dysrhythmias. Patient denies any cardiovascular complaints. Patient had clinical improvement. She was evaluated by Crisis. She was cleared medically for transfer to a psychiatric facility. Patient overall did well and was transferred to a psychiatric facility in 04/23/21. Time Spent with Patient Time attestation: Total time spent providing and/or coordinating transfer services:35 minutes Total time spent: Greater than 30 minutes Exam Narrative: AF 97.6 148/70 67
[2021-04-25 15:08] LABS: HIV 1 RNA PCR Not Detected Copies/mL; HIV 1 RNA PCR Not Detected Log cps/mL
[2021-04-25 15:23] LABS: Hepatitis C RNA, Quant PCR 3970000 IU/mL
--- NOTE | 2021-04-27 10:22 | PC.NURSE ---
HIV is negative. HEP C is positive. Patient has no PCP. Attempted to contact pt to follow up with Dr. Schreiber. Phone number no longer in service. Dr. Daniel ma.
== END 2021-04-23 15:09 ==
LOC: ANHED 08:08 → ANHIMU 15:32 → ANHICU 04-23 13:33 → ANHIMU 04-24 10:54
PROVIDERS: Emergency Medicine; Internal Medicine; Nurse Practitioner Adult Health; Admitting Provider Internal Medicine; Emergency Provider General Practice; Visit Provider Internal Medicine
DX: T50.901A Poisoning by unspecified drugs, medicaments and biological substances, accidental (unintentional), initial encounter (principal); R41.82 Altered mental status, unspecified; F19.10 Other psychoactive substance abuse, uncomplicated; F17.210 Nicotine dependence, cigarettes, uncomplicated; G40.909 Epilepsy, unspecified, not intractable, without status epilepticus; Z20.822 Contact with and (suspected) exposure to COVID-19; Z85.41 Personal history of malignant neoplasm of cervix uteri; Z79.899 Other long term (current) drug therapy; Z86.19 Personal history of other infectious and parasitic diseases
CPT/HCPCS: 36415; 51701; 70450; 80048; 80053; 80074; 80307; 81001; 81025; 82948; 84443; 84450; 84460; 84703; 85025; 85027; 87426; 87522; 87536; 93005; 96360; 96361; 96372; 99285; A9270; C9803; G0378; J1630; J1650; J7030; U0003; U0005

== ENCOUNTER 2021-07-16 15:40 | Outpatient (CLI) | payer OTHER, SELFPAY ==
[2021-07-16 16:33] LABS: Appearance Urine Clear (Clear); Bilirubin Urine Negative (Negative); Blood Urine Negative (Negative); Color Urine Yellow (Yellow); Glucose Urine UA Negative (Negative); Ketones Urine Negative (Negative); Leukocyte Esterase Ur Negative LEU/UL (Negative); Nitrate Urine Negative (Negative); Protein Urine Negative (Negative); Urobilinogen Urine 0.2 mg/dL (<2.0); pH Urine 6.5 (5.0-9.0)
[2021-07-16 16:35] LABS: Add Urine Microscopic? NO
== END 2021-07-16 15:41 | disposition home or self-care (01) ==
PROVIDERS: Visit Provider Family Medicine
DX: Z00.00 Encounter for general adult medical examination without abnormal findings (principal)
CPT/HCPCS: 81003

== ENCOUNTER 2021-07-17 12:32 | Outpatient (CLI) | payer OTHER, SELFPAY ==
[2021-07-17 13:00] LABS: Basophils Percent Auto 0.4 % (0.2-1.2); Eosinophils Absolute Auto 0.1 K/mm3 (0-0.3); Eosinophils Percent Auto 1.8 % (0-4.4); Hematocrit 42.3 % (37.0-47.0); Hemoglobin 14.4 g/dL (12.0-15.0); Immature Granulocyte Absolute 0.01 K/mm3 (0.00-0.031); Immature Granulocyte Percent A 0.1 % (0-0.5); Lymphocytes Absolute Auto 1.76 K/mm3 (0.9-3.2); Mean Corpuscular Hemoglobin 28.8 pg (26-34); Mean Corpuscular Volume 84.6 fl (80-100); Monocytes Absolute Auto 0.4 K/mm3 (0.1-0.6); Monocytes Percent Auto 5.4 % (2.6-8.5); Neutrophils Percent Auto 68.3 % (45.5-73.1); Platelet Count Result 181 k/mm3 (150-375); Red Cell Distribution Width 13.2 % (11.5-14.5); White Blood Count 7.3 K/mm3 (4.5-10.0)
[2021-07-17 13:11] LABS: Hemoglobin A1C 4.7 % (<5.7)
[2021-07-17 13:15] LABS: Cholesterol 193 mg/dL (0-200); HDL Direct 56 mg/dL; Triglycerides 148 mg/dL (<150)
[2021-07-17 13:25] LABS: LDL Cholesterol Direct 87 mg/dL
[2021-07-17 13:39] LABS: Vitamin D 25 Hydroxy 24.7 ng/mL
== END 2021-07-17 12:33 | disposition home or self-care (01) ==
PROVIDERS: Visit Provider Family Medicine
DX: Z00.00 Encounter for general adult medical examination without abnormal findings (principal)
CPT/HCPCS: 36415; 80061; 82306; 83036; 84443; 85025; 99212; G0463

== ENCOUNTER 2023-03-31 10:17 | Outpatient (CLI) | payer OTHER, SELFPAY ==
[2023-03-31 12:07] LABS: Basophils Percent Auto 0.4 % (0.2-1.2); Eosinophils Absolute Auto 0.1 K/mm3 (0-0.3); Eosinophils Percent Auto 0.8 % (0-4.4); Hematocrit 37.1 % (37.0-47.0); Hemoglobin 12.1 g/dL (12.0-15.0); Immature Granulocyte Absolute 0.01 K/mm3 (0.00-0.031); Immature Granulocyte Percent A 0.1 % (0-0.5); Lymphocytes Absolute Auto 1.87 K/mm3 (0.9-3.2); Lymphocytes Percent Auto 26.1 % (18.3-44.2); Mean Corpuscular HGB Conc 32.6 g/dl (32-36); Mean Corpuscular Hemoglobin 27.9 pg (26-34); Mean Corpuscular Volume 85.5 fl (80-100); Mean Platelet Volume 10.4 fl (7.4-10.4); Monocytes Absolute Auto 0.4 K/mm3 (0.1-0.6); Monocytes Percent Auto 6.1 % (2.6-8.5); Neutrophils Absolute Auto 4.8 K/mm3 (1.3-6.7); Neutrophils Percent Auto 66.5 % (45.5-73.1); Platelet Count Result 182 k/mm3 (150-375); Red Blood Count 4.34 M/mm3 (4.2-5.4); Red Cell Distribution Width 13.8 % (11.5-14.5); White Blood Count 7.2 K/mm3 (4.5-10.0)
[2023-03-31 12:09] LABS: Alanine Aminotransferase 76 U/L (6-35); Albumin Level 3.9 g/dL (3.5-5.1); Alkaline Phosphatase 69 U/L (38-126); Anion Gap 2 mmol/L (8-16); Aspartate Amino Transferase 78 U/L (14-36); Bilirubin,Total 0.6 mg/dL (0.2-1.3); Blood Urea Nitrogen 6 mg/dL (7-17); Carbon Dioxide 31 mmol/L (22-30); Chloride 104 mmol/L (98-107); Cholesterol 153 mg/dL (0-200); Estimated Glomerular Filt Rate > 60; Glucose 98 mg/dL (65-110); HDL Direct 48 mg/dL; Potassium 3.6 mmol/L (3.4-5.0); Sodium 137 mmol/L (137-145); Triglycerides 116 mg/dL (<150)
[2023-03-31 12:21] LABS: LDL Cholesterol Direct 76 mg/dL
== END 2023-03-31 10:18 | disposition home or self-care (01) ==
PROVIDERS: Visit Provider Emergency Medicine
DX: F41.8 Other specified anxiety disorders (principal); Z79.899 Other long term (current) drug therapy; Z13.220 Encounter for screening for lipoid disorders
CPT/HCPCS: 36415; 80053; 80061; 84443; 85025